=== PATIENT | male | born 1985 | race Asian ===

== ENCOUNTER 2018-11-12 16:35 | Inpatient (IN) | payer BC ==
[~2018-11-12] VITALS: Ht 170.2 cm; Wt 63.5 kg
[2018-11-12 16:53] VITALS: BP_SYST 148
[2018-11-12 17:25] LABS: BASOPHILS # (AUTO) 0.1 K/uL (0.0-0.2); BASOPHILS % (AUTO) 0.8 % (0.0-2.0); EOSINOPHILS # (AUTO) 0.8 K/uL (0.0-0.4); EOSINOPHILS % (AUTO) 7.9 % (0.0-4.0); HEMATOCRIT 46.4 % (36-54); HEMOGLOBIN 15.3 g/dL (14.0-18.0); LYMPHOCYTES # (AUTO) 1.6 K/uL (1.0-5.5); LYMPHOCYTES % (AUTO) 17.1 % (20.5-51.5); MEAN CORPUSCULAR HEMOGLOBIN 29 pg (27-31); MEAN CORPUSCULAR HGB CONC 33 % (32-36); MEAN CORPUSCULAR VOLUME 87 fL (79.0-98.0); MONOCYTES # (AUTO) 0.6 K/uL (0.0-1.0); MONOCYTES % (AUTO) 6.3 % (1.7-9.3); NEUTROPHILS # (AUTO) 6.5 K/uL (1.8-7.7); NEUTROPHILS % (AUTO) 67.9 % (40.0-70.0); PLATELET COUNT (AUTO) 268 K/uL (130-430); RED BLOOD CELL COUNT(AUTO) 5.34 MIL/uL (4.2-6.2); RED CELL DISTRIBUTION WIDTH 12.2 % (9.0-15.0); WHITE BLOOD COUNT (AUTO) 9.6 K/uL (4.8-10.8)
[2018-11-12] MEDS ORDERED: NEOSTIGMINE METHYLSULFATE 1 MG/ML, 10 ML VIAL IVP ONE (17:30)
[2018-11-12] MEDS ORDERED: GLYCOPYRROLATE 0.2 MG/ML VIAL IJ ONE (17:30)
[2018-11-12] MEDS ORDERED: KETOROLAC TROMETHAMINE 30 MG VIAL IVP ONE (17:30)
[2018-11-12] MEDS ORDERED: MIDAZOLAM HCL 5 MG/5 ML VIAL IVP ONE (17:30)
[2018-11-12] MEDS ORDERED: ONDANSETRON HCL 4 MG/2 ML VIAL IVP ONE (17:30)
[2018-11-12] MEDS ORDERED: FAMOTIDINE PF 20 MG/2 ML VIAL IVP ONE (17:30)
[2018-11-12] MEDS ORDERED: METOCLOPRAMIDE HCL 10 MG/2 ML VIAL IVP ONE (17:30)
[2018-11-12] MEDS ORDERED: ROCURONIUM BROMIDE 10 MG/ML (ZEMURON) IV ONE (17:30)
[2018-11-12] MEDS ORDERED: DEXAMETHASONE SOD PHOSPHATE 4 MG/ML VIAL IVP ONE (17:30)
[2018-11-12] MEDS ORDERED: SEVOFLURANE 15 MIN GAS INH ONE (17:30)
[2018-11-12] MEDS ORDERED: PROPOFOL 200MG/ 20ML VIAL (DIPRIVAN) IV ONE (17:30)
[2018-11-12] MEDS ORDERED: LR 1,000 ML IV.SOLN IV ONE (17:30)
[2018-11-12] MEDS ORDERED: fentaNYL CITRATE 250 MCG/5 ML AMP IV ONE (17:30)
[2018-11-12 17:32] LABS: CALCIUM 9.4 mg/dL (8.4-11.0); CREATININE 0.92 mg/dL (0.55-1.30); POTASSIUM 3.8 mmol/L (3.5-5.1)
[2018-11-12 17:38] LABS: ALBUMIN 3.5 g/dL (3.4-4.8); TOTAL BILIRUBIN 0.4 mg/dL (0.0-1.0)
[2018-11-12] MEDS ORDERED: HYDROcodone/ACETAMIN 7.5-325 MG TAB PO PRN ×2 (20:45→23:00)
[2018-11-12] MEDS ORDERED: NACL 0.9% 1,000 ML IV SCH (20:45)
[2018-11-12] MEDS ORDERED: ACETAMINOPHEN 325 MG TABLET PO PRN ×2 (20:45→23:00)
[2018-11-12] MEDS ORDERED: MORPHINE 4 MG/ML INJ. SYRINGE IVP PRN (20:45)
[2018-11-12 21:20] VITALS: BP_SYST 145
[2018-11-13 00:20] VITALS: BP_SYST 155
[2018-11-13] MEDS: MORPHINE 4 MG/ML INJ. SYRINGE IVP PRN ×4 (02:16→21:01)
[2018-11-13 07:50] VITALS: BP_SYST 154
[2018-11-13] MEDS ORDERED: DOCUSATE SODIUM 100 MG CAPSULE PO PRN (10:30)
[2018-11-13] MEDS ORDERED: MAGNESIUM SULFATE 50 ML IV PRN (10:30)
[2018-11-13] MEDS ORDERED: MUPIROCIN 2% TOPICAL OINTMENT 22 GM NS PRN (10:30)
[2018-11-13] MEDS ORDERED: POTASSIUM CHLORIDE 20 MEQ TAB.PRT.SR PO PRN (10:30)
[2018-11-13 11:11] LABS: INR 0.9 (0.80-1.20); PROTHROMBIN TIME 9.2 SECS (9.5-12.5)
[2018-11-13] MEDS: D5NS 1,000 ML IV SCH (11:47)
[2018-11-13 12:00] VITALS: BP_SYST 140
[2018-11-13 16:00] VITALS: BP_SYST 138
[2018-11-13 18:59] LABS: CLARITY/URINE CLEAR (CLEAR); COLOR,URINE YELLOW (YELLOW); GLUCOSE,URINE NEGATIVE (NEGATIVE); KETONES,URINE 3+ (NEGATIVE); LEUKOCYTE ESTERASE ,URINE NEGATIVE (NEGATIVE); NITRITE, URINE NEGATIVE (NEGATIVE); PH,URINE 5.5 (5.0-8.0); PROTEIN URINE NEGATIVE (NEGATIVE); UROBILINOGEN,URINE 0.2 (0.2-1.0)
[2018-11-13 19:09] LABS: BLOOD, URINE TRACE (NEGATIVE)
[2018-11-13 19:11] LABS: BACTERIA,URINE FEW /HPF (None Seen); BILIRUBIN,URINE 1+ (NEGATIVE); MUCUS,URINE None Seen /LPF (None Seen); RBC,URINE 0-3 /HPF (0-3); WBC,URINE 0-3 /HPF (0-3)
[2018-11-13 19:15] LABS: BARBITURATE, URINE NEGATIVE (NEG <=200); BENZODIAZEPINE, URINE NEGATIVE (NEG <=150); CANNABINOID, URINE NEGATIVE (NEG <=50); COCAINE, URINE NEGATIVE (NEG <=150); METHAMPHETAMINES SCREEN,URINE NEGATIVE (NEG <=500); OPIATE, URINE POSITIVE (NEG <=100); PHENCYCLIDINE SCREEN,URINE NEGATIVE (NEG <=25); UR TRICYCLIC ANTIDEPRESSANTS NEGATIVE (NEG <=300); URINE AMPHETAMINE NEGATIVE (NEG <=500); URINE METHADONE NEGATIVE (NEG <=200); URINE OXYCODONE SCREEN NEGATIVE (NEG <=100); URINE PROPOXYPHENE SCREEN NEGATIVE (NEG <=300)
[2018-11-13 20:00] VITALS: BP_SYST 141
[2018-11-14] MEDS: D5NS 1,000 ML IV SCH ×3 (05:45→22:45)
[2018-11-14 07:13] LABS: BASOPHILS % (AUTO) 0.4 % (0.0-2.0); EOSINOPHILS # (AUTO) 0.5 K/uL (0.0-0.4); EOSINOPHILS % (AUTO) 5.9 % (0.0-4.0); HEMATOCRIT 43.5 % (36-54); HEMOGLOBIN 14.5 g/dL (14.0-18.0); LYMPHOCYTES # (AUTO) 1.7 K/uL (1.0-5.5); LYMPHOCYTES % (AUTO) 21.2 % (20.5-51.5); MEAN CORPUSCULAR HEMOGLOBIN 29 pg (27-31); MEAN CORPUSCULAR HGB CONC 33 % (32-36); MEAN CORPUSCULAR VOLUME 86 fL (79.0-98.0); MONOCYTES # (AUTO) 0.6 K/uL (0.0-1.0); MONOCYTES % (AUTO) 7.3 % (1.7-9.3); NEUTROPHILS # (AUTO) 5.2 K/uL (1.8-7.7); NEUTROPHILS % (AUTO) 65.2 % (40.0-70.0); PLATELET COUNT (AUTO) 306 K/uL (130-430); RED BLOOD CELL COUNT(AUTO) 5.05 MIL/uL (4.2-6.2); RED CELL DISTRIBUTION WIDTH 12.3 % (9.0-15.0)
[2018-11-14 07:14] LABS: CALCIUM 8.7 mg/dL (8.4-11.0); CREATININE 0.67 mg/dL (0.55-1.30); PHOSPHORUS 2.9 mg/dL (2.7-4.5); POTASSIUM 3.9 mmol/L (3.5-5.1)
[2018-11-14 07:30] VITALS: BP_SYST 148
[2018-11-14] MEDS: MORPHINE 4 MG/ML INJ. SYRINGE IVP PRN ×2 (09:17→22:46)
[2018-11-14 12:30] VITALS: BP_SYST 128
[2018-11-14] MEDS ORDERED: KETOROLAC TROMETHAMINE 30 MG VIAL IVP PRN (12:30)
[2018-11-14] MEDS: PIPERACILLIN/TAZO 3.375/DEX-IS 50 ML IV SCH ×3 (12:58→22:57)
[2018-11-14 16:54] VITALS: BP_SYST 157
[2018-11-14 17:06] VITALS: BP_SYST 147
[2018-11-14 20:00] VITALS: BP_SYST 144
[2018-11-15] VITALS: BP_SYST 131
[2018-11-15] MEDS ORDERED: PIPERACILLIN/TAZO 3.38 GM in NS 50 ML IV SCH ×2
[2018-11-15] MEDS: MORPHINE 4 MG/ML INJ. SYRINGE IVP PRN ×2 (05:22→11:47)
[2018-11-15] MEDS: PIPERACILLIN/TAZO 3.375/DEX-IS 50 ML IV SCH ×4 (05:22→23:35)
[2018-11-15] MEDS ORDERED: metroNIDAZOLE 500 mg/NS 100 ML IV SCH (06:00)
[2018-11-15 07:15] LABS: CALCIUM 8.7 mg/dL (8.4-11.0); CREATININE 0.8 mg/dL (0.55-1.30); POTASSIUM 4.6 mmol/L (3.5-5.1)
[2018-11-15 07:21] LABS: PHOSPHORUS 3.2 mg/dL (2.7-4.5)
[2018-11-15 07:30] VITALS: BP_SYST 146
[2018-11-15 07:38] LABS: BASOPHILS # (AUTO) 0.1 K/uL (0.0-0.2); BASOPHILS % (AUTO) 0.9 % (0.0-2.0); EOSINOPHILS # (AUTO) 0.7 K/uL (0.0-0.4); EOSINOPHILS % (AUTO) 9.3 % (0.0-4.0); HEMATOCRIT 45.5 % (36-54); HEMOGLOBIN 14.6 g/dL (14.0-18.0); LYMPHOCYTES # (AUTO) 1.4 K/uL (1.0-5.5); LYMPHOCYTES % (AUTO) 19.9 % (20.5-51.5); MEAN CORPUSCULAR HEMOGLOBIN 28 pg (27-31); MEAN CORPUSCULAR HGB CONC 32 % (32-36); MEAN CORPUSCULAR VOLUME 87 fL (79.0-98.0); MONOCYTES # (AUTO) 0.4 K/uL (0.0-1.0); MONOCYTES % (AUTO) 6.2 % (1.7-9.3); NEUTROPHILS # (AUTO) 4.5 K/uL (1.8-7.7); NEUTROPHILS % (AUTO) 63.7 % (40.0-70.0); PLATELET COUNT (AUTO) 292 K/uL (130-430); RED BLOOD CELL COUNT(AUTO) 5.24 MIL/uL (4.2-6.2); RED CELL DISTRIBUTION WIDTH 12.3 % (9.0-15.0); WHITE BLOOD COUNT (AUTO) 7.1 K/uL (4.8-10.8)
[2018-11-15] MEDS: D5NS 1,000 ML IV SCH (10:15)
[2018-11-15 12:51] VITALS: BP_SYST 152
[2018-11-15 17:03] VITALS: BP_SYST 145
[2018-11-15] MEDS ORDERED: FAMOTIDINE PF 20 MG/2 ML VIAL ONE (18:27)
[2018-11-15] MEDS ORDERED: LR 1,000 ML IV SCH (18:29)
[2018-11-15] MEDS ORDERED: MEPERIDINE HCL/PF 25 MG/ML DISP.SYRIN IVP PRN (18:30)
[2018-11-15] MEDS ORDERED: HYDROmorphone 2 MG/ML VIAL IVP PRN ×3 (18:30)
[2018-11-15 18:48] VITALS: BP_SYST 145
[2018-11-15] MEDS ORDERED: HYDROmorphone 1 MG INJ. 1 MG/ML AMPUL ONE (20:26)
[2018-11-15] MEDS ORDERED: NACL 0.9% 1,000 ML IV ONE (20:40)
[2018-11-15] MEDS ORDERED: KETOROLAC TROMETHAMINE 30 MG VIAL IVP ONE ×2 (20:45→22:15)
[2018-11-15] MEDS ORDERED: MORPHINE SULFATE 10 MG/ML VIAL IVP ONE (20:45)
[2018-11-15] MEDS ORDERED: PIPERACILLIN/TAZO 3.38 GM in NS 50 ML IV ONE (20:45)
[2018-11-15] MEDS: D5/0.45 NS 1,000 ML IV SCH (20:56)
[2018-11-15 21:00] VITALS: BP_SYST 152
[2018-11-15] MEDS ORDERED: DIPHENHYDRAMINE INJ 50 MG/ML VIAL IVP ONE (21:00)
[2018-11-15] MEDS ORDERED: PIPERACILLIN/TAZOBACTAM 3.375 GM/VIAL (ZOSYN) IV ONE (21:45)
[2018-11-15] MEDS ORDERED: KCL 40mEq in D5/0.45NS 1000 mL 1,000 ML IV ONE (22:00)
[2018-11-15] MEDS ORDERED: MORPHINE 4 MG/ML INJ. SYRINGE IVP ONE (22:15)
[2018-11-15] MEDS ORDERED: KETOROLAC TROMETHAMINE 30 MG VIAL IVP PRN (22:30)
[2018-11-15] MEDS ORDERED: ONDANSETRON HCL 4 MG/2 ML VIAL IVP PRN (22:30)
[2018-11-15] MEDS: HYDROmorphone 2 MG/ML VIAL IVP PRN (22:53)
[2018-11-16] MEDS ORDERED: PIPERACILLIN/TAZO 3.375/DEX-IS 50 ML IV SCH
[2018-11-16] MEDS: ONDANSETRON HCL 4 MG/2 ML VIAL IVP PRN ×3 (03:46→14:16)
[2018-11-16] MEDS: MORPHINE 4 MG/ML INJ. SYRINGE IVP PRN ×2 (03:47→14:16)
[2018-11-16] MEDS: PIPERACILLIN/TAZO 3.375/DEX-IS 50 ML IV SCH ×2 (05:16→12:36)
[2018-11-16 07:46] LABS: CALCIUM 9.1 mg/dL (8.4-11.0); CREATININE 0.89 mg/dL (0.55-1.30); POTASSIUM 3.9 mmol/L (3.5-5.1)
[2018-11-16 08:00] VITALS: BP_SYST 145
[2018-11-16 08:04] LABS: ALBUMIN 3.3 g/dL (3.4-4.8); PHOSPHORUS 2.5 mg/dL (2.7-4.5); TOTAL BILIRUBIN 0.6 mg/dL (0.0-1.0)
[2018-11-16] MEDS: D5/0.45 NS 1,000 ML IV SCH (08:15)
[2018-11-16 08:46] LABS: BASOPHILS % (AUTO) 0.4 % (0.0-2.0); HEMATOCRIT 43.5 % (36-54); LYMPHOCYTES # (AUTO) 0.8 K/uL (1.0-5.5); LYMPHOCYTES % (AUTO) 8.7 % (20.5-51.5); MEAN CORPUSCULAR HEMOGLOBIN 28 pg (27-31); MEAN CORPUSCULAR HGB CONC 32 % (32-36); MEAN CORPUSCULAR VOLUME 86 fL (79.0-98.0); MONOCYTES # (AUTO) 0.4 K/uL (0.0-1.0); MONOCYTES % (AUTO) 3.6 % (1.7-9.3); NEUTROPHILS # (AUTO) 8.6 K/uL (1.8-7.7); NEUTROPHILS % (AUTO) 87.3 % (40.0-70.0); PLATELET COUNT (AUTO) 302 K/uL (130-430); RED BLOOD CELL COUNT(AUTO) 5.04 MIL/uL (4.2-6.2); RED CELL DISTRIBUTION WIDTH 12.7 % (9.0-15.0); WHITE BLOOD COUNT (AUTO) 9.8 K/uL (4.8-10.8)
[2018-11-16] MEDS: HYDROmorphone 2 MG/ML VIAL IVP PRN (09:17)
[2018-11-16 12:07] VITALS: BP_SYST 139
[2018-11-16] MEDS ORDERED: HYDR-4272 PO (12:51)
[2018-11-16 13:11] VITALS: BP_SYST 139
== END 2018-11-16 15:05 | disposition home or self-care (01) | DRG 419 ==
LOC: SED 16:35 → SMU 20:42
PROVIDERS: ADMIT Family Medicine; ATTEND Family Medicine
PROC: 0FT44ZZ Resection of Gallbladder, Percutaneous Endoscopic Approach (ICD-10-PCS; principal; 2018-11-15 17:30)
DX: K80.12 Calculus of gallbladder with acute and chronic cholecystitis without obstruction (principal); K82.8 Other specified diseases of gallbladder; R74.0 Nonspecific elevation of levels of transaminase and lactic acid dehydrogenase [LDH]; N28.1 Cyst of kidney, acquired; Z87.891 Personal history of nicotine dependence
CPT/HCPCS: 36415; 71046-TC; 76700-TC; 80048; 80053; 80307; 81000-TC; 83036; 83690-TC; 83735-TC; 84100-TC; 85025; 85610-TC; 87081; 88304; 93005; 99285; C1727; J1100; J1170; J1885; J2250; J2270; J2405; J2543; J2704; J2710; J2765; J3010; J3490; J7030; J7042; J7120

== ENCOUNTER 2022-01-27 09:05 | Emergency (ER) | payer BC, OTHER ==
[~2022-01-27] VITALS: Ht 170.2 cm; Wt 68.0 kg
[~2022-01-27 09:05] MED LIST: HYDR-4272 PO
[2022-01-27 09:09] VITALS: BP_SYST 156; BP_SYST 165
--- NOTE | 2022-01-27 09:09 | NUR ---
Placed in room 6 . Placed on radiation monitor, blood pressure machine and pulse oximeter. To gown for exam. Side rails up.
--- NOTE | 2022-01-27 09:10 | NUR ---
PT CAME IN FROM HOME C/O LEFT SIDED MID ABD PAIN SINCE TUESDAY. REPORTS THAT THE PAIN HAS BEEN INTERMITTANT BUT WOKE UP THIS AM WITH SHARP 10/10 PAIN. STATES HE HAD DIRRHEA X1 ON TUESDAY. DENIES N/V. PT IS AMBULATORY, AAOX4, VSS
--- NOTE | 2022-01-27 09:32 | NUR ---
Patient transported to radiology via WC, accompanied by STAFF.
--- NOTE | 2022-01-27 09:38 | NUR ---
Returned from radiology, back to [facility].
[2022-01-27 09:59] LABS: BILIRUBIN,URINE NEGATIVE (NEGATIVE); BLOOD, URINE 3+ (NEGATIVE); COLOR,URINE YELLOW (YELLOW); GLUCOSE,URINE NEGATIVE (NEGATIVE); KETONES,URINE NEGATIVE (NEGATIVE); LEUKOCYTE ESTERASE ,URINE NEGATIVE (NEGATIVE); NITRITE, URINE NEGATIVE (NEGATIVE); PROTEIN URINE NEGATIVE (NEGATIVE); UROBILINOGEN,URINE 0.2 (0.2-1.0)
[2022-01-27 10:06] LABS: CLARITY/URINE SLIGHTLY HAZY (CLEAR)
--- NOTE | 2022-01-27 10:15 | NUR ---
# 22 gauge angiocath placed to L HAND. Use of asceptic technique. Opsite placed over site. Blood return noted. Blood for lab drawn from site. Flushed with 10 cc of normal saline. No evidence of infiltration noted. Patient tolerated well.
[2022-01-27 10:16] LABS: BACTERIA,URINE FEW /HPF (None Seen); WBC,URINE 0-3 /HPF (0-3)
[2022-01-27] MEDS ORDERED: fentaNYL CITRATE/PF 100 MCG/2 ML AMP IVP ONE (10:30)
[2022-01-27] MEDS ORDERED: NACL 0.9% 1,000 ML IV ONE (10:45)
[2022-01-27] MEDS ORDERED: KETOROLAC TROMETHAMINE 30 MG VIAL IVP ONE (10:45)
[2022-01-27 11:21] LABS: CALCIUM 10.3 mg/dL (8.4-11.0); CREATININE 0.78 mg/dL (0.55-1.30); POTASSIUM 4.4 mmol/L (3.5-5.1)
[2022-01-27 11:27] LABS: ALBUMIN 4.1 g/dL (3.4-4.8); TOTAL BILIRUBIN 0.3 mg/dL (0.0-1.0)
--- NOTE | 2022-01-27 11:30 | NUR ---
Patient resting quietly. No acute distress noted. Vital signs within normal range.
[2022-01-27] MEDS ORDERED: HYDR-3917 PO (11:54)
[2022-01-27] MEDS ORDERED: IBUP-1969 PO (11:54)
[2022-01-27] MEDS ORDERED: TAMS-11 PO (11:54)
--- NOTE | 2022-01-27 12:20 | NUR ---
Patient resting quietly. No acute distress noted. Vital signs within normal range.
[2022-01-27 13:37] VITALS: BP_SYST 165
--- NOTE | 2022-01-27 13:37 | NUR ---
Patient given written and verbal discharge instructions and verbalizes understanding. ER MD discussed with patient the results and treatment provided. Patient in stable condition. ID arm band removed. IV catheter removed intact and dressing applied, no active bleeding. Rx of NORCO AND IBUPRFEN AND FLOMAX given. Patient educated on pain management and to follow up with PMD. Pain Scale 3/10. Opportunity for questions provided and answered. Medication side effect fact sheet provided.
== END 2022-01-27 13:37 | disposition home or self-care (01) ==
LOC: SED 09:05
DX: R10.12 Left upper quadrant pain (principal)
CPT/HCPCS: 36415; 74176; 76376; 80053; 81000; 96361; 96374; 96375; 99284; J1885; J3010; J7030

== ENCOUNTER 2023-05-01 05:52 | Emergency (ER) | payer BC, OTHER ==
[~2023-05-01] VITALS: Ht 170.2 cm; Wt 117.9 kg
[~2023-05-01 05:52] MED LIST changes: +HYDR-3917 PO; +IBUP-1969 PO; +TAMS-11 PO
--- NOTE | 2023-05-01 06:11 | NUR ---
CALLED PT NO RESPONSE
[2023-05-01 06:20] VITALS: BP_SYST 155; PULSE 88; RESP 16; TEMP 97.7; O2SAT 99
--- NOTE | 2023-05-01 06:24 | NUR ---
Patient triaged and placed in waiting room. VSS and patient appears in no acute distress at this time. Accompanied by SELF, awaiting available bed, and MD notified of need for MSE.
--- NOTE | 2023-05-01 06:50 | NUR ---
ERMD AT TRIAGE EVALUATING PT
--- NOTE | 2023-05-01 07:10 | NUR ---
Pt brought by self ambulatory, A&Ox4, pt presents to ER with L lower abdominal pain, denies N/V/D or fever, skin pink and warm, cap refill <3, VSS, respirations even and unlabored.
[2023-05-01 07:45] LABS: BASOPHILS # (AUTO) 0.1 K/uL (0.0-0.2); BASOPHILS % (AUTO) 0.7 % (0.0-2.0); EOSINOPHILS # (AUTO) 0.2 K/uL (0.0-0.4); MEAN CORPUSCULAR HEMOGLOBIN 28 pg (27-31); MEAN CORPUSCULAR HGB CONC 32 % (32-36); NEUTROPHILS # (AUTO) 10.1 K/uL (1.8-7.7)
[2023-05-01 07:56] LABS: EOSINOPHILS % (AUTO) 1.6 % (0.0-4.0); HEMATOCRIT 47.9 % (36-54); HEMOGLOBIN 15.3 g/dL (14.0-18.0); LYMPHOCYTES # (AUTO) 2.2 K/uL (1.0-5.5); LYMPHOCYTES % (AUTO) 16.4 % (20.5-51.5); MEAN CORPUSCULAR VOLUME 87 fL (79.0-98.0); MONOCYTES # (AUTO) 0.9 K/uL (0.0-1.0); MONOCYTES % (AUTO) 6.8 % (1.7-9.3); NEUTROPHILS % (AUTO) 74.5 % (40.0-70.0); PLATELET COUNT (AUTO) 291 K/uL (130-430); RED BLOOD CELL COUNT(AUTO) 5.54 MIL/uL (4.2-6.2); RED CELL DISTRIBUTION WIDTH 13.7 % (9.0-15.0); WHITE BLOOD COUNT (AUTO) 13.6 K/uL (4.8-10.8)
[2023-05-01 07:59] LABS: ANION GAP 11 (5-15); CALCIUM 9.8 mg/dL (8.4-11.0); CHLORIDE 101 mmol/L (98-107); CREATININE 1.08 mg/dL (0.55-1.30); GFR AFRICAN AMERICAN 99 mL/min (>90); GLUCOSE 96 mg/dL (74-106); UREA NITROGEN, BLOOD 12 mg/dL (8-21)
[2023-05-01 08:03] LABS: ALANINE AMINOTRANSFERASE 165 U/L (12-78); ALBUMIN 4.5 g/dL (3.4-4.8); AMYLASE 47 U/L (0-100); ASPARTATE AMINOTRANSFERASE 43 U/L (10-37); LIPASE 106 U/L (73-393); TOTAL BILIRUBIN 0.4 mg/dL (0.0-1.0)
[2023-05-01 08:10] LABS: ACETONE, SERUM NEGATIVE (NEGATIVE)
[2023-05-01] MEDS ORDERED: TRAM50TA2 PO (08:35)
[2023-05-01] MEDS ORDERED: IBUP-1971 PO (08:35)
--- NOTE | 2023-05-01 08:45 | NUR ---
Patient given written and verbal discharge instructions and verbalizes understanding. ER MD discussed with patient the results and treatment provided. Patient in stable condition. ID arm band removed. Rx of Ibuprofen and Tramadol given. Patient educated on pain management and to follow up with PMD. Pain Scale 2/10. Opportunity for questions provided and answered. Medication side effect fact sheet provided.
[2023-05-01 08:46] VITALS: BP_SYST 155; PULSE 88; RESP 16; TEMP 97.7; O2SAT 99
== END 2023-05-01 08:45 | disposition home or self-care (01) ==
LOC: SED 05:52
DX: N23 Unspecified renal colic (principal); Z79.899 Other long term (current) drug therapy
CPT/HCPCS: 36415; 76376; 80053; 82009; 82150; 83605; 83690; 85025; 99284